=== PATIENT | female | born 1990 | race Caucasian/White ===

== ENCOUNTER 2024-08-06 08:51 | Outpatient (AMB) | payer BC, SELFPAY ==
--- NOTE | 2024-08-06 08:40 | MHC.PC.OV ---
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 Allergies morphine Allergy (Mild, Verified 08/06/24 09:02) stiff Medication List - Last Reconciled 08/06/24 by Coty Gonzalez PA-C No Known Home Meds Tobacco use date assessed: 08/06/24 Dental Screening Dental Screen Date: 08/06/24 Did you have a dental visit in the last 12 months?: Yes Did you have a dental problem in the last 6 months where you did not have access to dental care?: No Was dental information given to patient?: Patient has dentist HPI 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 General: She has tried keto, functional medicine, weight watchers, atkins, [place], calorie deficit, phetnermine, metformin, mounjaro and wegovy. She continues to exercise and eat healthy but unable to lose more weight. Phentermine elevated bp. Metformin caused GI distress. With wegovy she was able to lose 40 lbs and keep it off. She lost 10-15 off of mounjaro. She has been able to keep off 40 lbs. She been off of medications for 6 months or so. She would like to try wegovy again to get down to her goal weight of 175. Her highest weight was 275 lbs. Psych: has anxiety and depression and she states it flares the week before her period. She states she has only every tried ativan but did not tolerate it. She does feel like she would benefit from treatment. Breast: She has noted right breast pain and increased sized. She states it changed 1-2 months ago. She states it feels full. No nipple drainage. No palpable lump. She states it is 1-2 cup sizes bigger than the other side. No fam hx of breast or ovarian ca. No skin changes. 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 [facility] Medical History (Updated 08/06/24 @ 09:44 by Coty Gonzalez PA-C) Severe obesity (BMI 35.0-39.9) with comorbidity Seasonal allergies Polycystic ovarian syndrome Migraine Fatty liver Depression Chronic low back pain Anxiety disorder Abdominal pain, bilateral lower quadrant Surgical History (Updated 08/06/24 @ 08:43 by Kera Cancino CMA) S/P laparoscopy with lysis of adhesions H/O section Family History (Updated 08/06/24 @ 09:05 by Kera Cancino CMA) Mother Anxiety Depression Father Alcoholic Paternal Grandmother Alcoholic Paternal Grandfather Alcoholic Maternal Grandmother Alcoholic Maternal Grandfather Alcoholic Other Substance use Social History Housing: House Patient Tobacco Use Status: Former Tobacco user Cigarettes Per Day: 6 Years Smoked: 7 e-Cigarette/Vaping Use: Currently Using service: No Current occupational status: employed 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 Current occupational exposures/hazards: Yes (ink, heavy machinery, chemicals) Cognitive needs: No Hearing needs: No Vision needs: No Questionnaire Thrive Questionnaire Date Thrive assessed: 07/31/24 I am a: Patient What is your living situation today?: I have a steady place to live Within the past 12 months, did the food you bought not last and you didn't have the money to get more?: Never true Within the past 12 months, did you worry whether your food would run out before you got money to buy more?: Never true Do you have trouble paying for medicines?: Yes Do you have trouble getting transportation to medical appointments?: No Do you have trouble paying your heating and electricity bill?: Yes Do you have trouble taking care of your child, family member or friend?: No Do you have trouble with day-to-day activities such as bathing, preparing meals, shopping, managing finances, etc.?: No Are you currently unemployed and looking for a job?: No Are you interested in more education?: Yes Please select the resources that you would like help with: None Currently or been in a relationship where the following occur: No concerns reported THRIVE Score: 1 AUDIT C Alcohol Use Questionnaire (AUDIT-C) 1. How often do you have a drink containing alcohol?: 2-4 times a month 2. How many drinks containing alcohol do you have on a typical day when you are drinking?: 1 or 2 3. How often do you have six or more drinks on one occasion?: Less than monthly Total Score: 3 OLGA-7 AMB Questionnaire OLGA-7 Feeling nervous, anxious, or on edge: 1 = Several days Not being able to stop or control worryin = Several days Worrying too much about different things: 1 = Several days Trouble relaxin = Several days Being so restless that it is hard to sit still: 1 = Several days Feeling afraid as if something awful might happen: 1 = Several days Source: Developed by Drs. Beau Olea, Jyoti Buchanan, Pedro Garzon and colleagues, with an educational lidia from [employer]. Physical exam (Primary Care) Thrive Assessment: Date of Thrive Assessment Date Thrive assessed 07/31/24 08/06/24 08:45 Currently or been in a relationship where the following occur: No concerns reported Const Orientation/consciousness: patient oriented x3 HENMT Ears: hearing grossly normal bilaterally and TM's normal bilaterally General nose exam: No nasal polyps present Face and sinus: Yes sinuses nontender Mouth: Normal oral and palatal mucosa present Eyes Pupils: Equal, round and reactive pupils present EOM: EOMs intact bilaterally Neck Neck: Yes full ROM and Yes no lymphadenopathy Thyroid: Thyroid normal Chest Chest palpation & inspection: normal inspection of the chest Resp Auscultation: clear to auscultation bilaterally Cardio Rate: regular rate Rhythm: regular rhythm Heart sounds: S1 normal heart sound present and S2 normal heart sound present Peripheral pulses: Peripheral pulses 2+ throughout GI Other: Soft, nontender Auscultation: normal bowel sounds Rectal Exam - Female: deferred General: Yes no CVA tenderness Back/Spine/Pelvis Other: Nontender Back: no CVA tenderness Skin General skin exam: no rashes or lesions noted Neuro General: patient oriented x3, gait normal, CN's II-XI intact bilaterally and deep tendon reflexes 2+ bilaterally Cranial nerves: Yes Equal, round and reactive pupils present Motor exam (neuro): 5/5 motor strength present throughout Sensory Exam: double simultaneous stimulation for sensation normal Coordination: [id number] test normal and Romberg test negative Extrem General: Yes normal to inspection and Yes full ROM Psych Affect: normal affect Attitude: cooperative Thought process: Normal thought process present Thought content: Normal thought content present Insight: Good insight present (Psych) Judgement: Good judgement present (Psych) Coding Level of Care Code Est Pt Level 4 (55005) Complex EM visit Add On G2211 Diagnoses Generalized anxiety disorder F41.1 Fatty liver K76.0 Recurrent major depressive disorder, in partial remission F33.41 Major depression recurrence: recurrent Severe obesity (BMI 35.0-39.9) with comorbidity E66.01 Polycystic ovarian syndrome E28.2 Breast pain, right N64.4 Assessment & Plan Assessment & Plan (1) Generalized anxiety disorder: Code(s): F41.1 - Generalized anxiety disorder Category: Medical Plan: We will start Lexapro. We discussed risks and benefits and adverse effects of this medication. We will follow up in 4-6 weeks. Sooner if needed. (2) Fatty liver: Code(s): K76.0 - Fatty (change of) liver, not elsewhere classified Category: Medical Plan: She states it has been about 5 years since her last ultrasound and she wants to make sure that nothing has changed or worsened. Ultrasound ordered today ordered as well (3) Major depression in partial remission: Code(s): F32.4 - Major depressive disorder, single episode, in partial remission Category: Medical Qualifiers: Major depression recurrence: recurrent Qualified Code(s): F33.41 - Major depressive disorder, recurrent, in partial remission Plan: As above (4) Severe obesity (BMI 35.0-39.9) with comorbidity: Code(s): E66.01 - Morbid (severe) obesity due to excess calories Category: Medical Plan: We will start Wegovy. Discussed risks and benefits and adverse effects of this medication again. Was on this in the past and tolerated well. (5) Polycystic ovarian syndrome: Code(s): E28.2 - Polycystic ovarian syndrome Category: Medical Plan: Advised to follow up with OBGYN. Symptoms of PCOS improve with Wegovy. (6) Breast pain, right: Code(s): N64.4 - Mastodynia Category: Medical Plan: Imaging ordered. Referral to breast and wellness. Advised to contact Gynecology Orders: Orders MM diagnostic mammo unilat RT Today N64.4 - Mastodynia US breast RT complete Today N64.4 - Mastodynia IRON PROFILE Today E28.2 - Polycystic ovarian syndrome, E66.01 - Morbid (severe) obesity due to excess calories, F32.4 - Major depressive disorder, single episode, in partial remission, F41.1 - Generalized anxiety disorder, K76.0 - Fatty (change of) liver, not elsewhere classified, N64.4 - Mastodynia TSH reflex Free T4 Today E28.2 - Polycystic ovarian syndrome, E66.01 - Morbid (severe) obesity due to excess calories, F32.4 - Major depressive disorder, single episode, in partial remission, F41.1 - Generalized anxiety disorder, K76.0 - Fatty (change of) liver, not elsewhere classified, N64.4 - Mastodynia Vitamin B12 and Folate Today E28.2 - Polycystic ovarian syndrome, E66.01 - Morbid (severe) obesity due to excess calories, F32.4 - Major depressive disorder, single episode, in partial remission, F41.1 - Generalized anxiety disorder, K76.0 - Fatty (change of) liver, not elsewhere classified, N64.4 - Mastodynia Complete Blood Count Auto Diff Today E28.2 - Polycystic ovarian syndrome, E66.01 - Morbid (severe) obesity due to excess calories, F32.4 - Major depressive disorder, single episode, in partial remission, F41.1 - Generalized anxiety disorder, K76.0 - Fatty (change of) liver, not elsewhere classified, N64.4 - Mastodynia Comprehensive Met. Panel Today E28.2 - Polycystic ovarian syndrome, E66.01 - Morbid (severe) obesity due to excess calories, F32.4 - Major depressive disorder, single episode, in partial remission, F41.1 - Generalized anxiety disorder, K76.0 - Fatty (change of) liver, not elsewhere classified, N64.4 - Mastodynia Hemoglobin A1c Today E28.2 - Polycystic ovarian syndrome, E66.01 - Morbid (severe) obesity due to excess calories US abdomen complete Today E66.01 - Morbid (severe) obesity due to excess calories, K76.0 - Fatty (change of) liver, not elsewhere classified Referrals Breast Surgery Referral N63.10 - Unspecified lump in the right breast, unspecified quadrant, N64.4 - Mastodynia Medications: New escitalopram oxalate (Lexapro) 5 mg PO DAILY 90 tabs 0RF semaglutide (weight loss) (Wegovy) administer weeks 1 through 4 of therapy 0.25 mg (0.5 mL) subcut QWEEK 2 mL 1RF
[2024-08-06 09:06] VITALS: BP 122/78; PULSE 97; RESP 16; TEMP 37.1; O2SAT 98; BMI 38.2
== END 2024-08-06 09:44 | disposition home or self-care (01) ==
PROVIDERS: Visit Provider Physician Assistant
DX: F41.1 Generalized anxiety disorder (principal); F33.41 Major depressive disorder, recurrent, in partial remission; Z68.38 Body mass index [BMI] 38.0-38.9, adult; E66.812 Obesity, class 2; K76.0 Fatty (change of) liver, not elsewhere classified; E28.2 Polycystic ovarian syndrome; N64.4 Mastodynia

== ENCOUNTER → 2024-08-06 08:51 | Outpatient (BNVA) | payer BC, SELFPAY | PROVIDERS: Visit Provider Physician Assistant ==

== ENCOUNTER 2024-08-06 10:05 | Outpatient (REF) | payer OTHER, SELFPAY ==
[2024-08-06 11:16] LABS: MANUAL DIFF FLAG NO
[2024-08-06 11:27] LABS: Basophils Percent Auto 0.3 % (0-2); Eosinophils Absolute Auto 0.1 X10*3/uL (0.0-0.4); Eosinophils Percent Auto 0.6 % (0-4); Hematocrit 41.5 % (37.0-47.0); Hemoglobin 14.7 g/dl (12.0-16.0); Imm Gran Abs Auto 0.04 X10*3/uL (0.00-0.03); Imm Gran Pct Auto 0.3 % (0.0-0.4); Lymphocytes Absolute Auto 2.3 X10*3/uL (1.2-4.9); Lymphocytes Percent Auto 19.1 % (20-40); Mean Corpuscular HGB Conc 35.4 g/dl (31.0-35.0); Mean Corpuscular Hemoglobin 28.9 pg (27.0-33.0); Mean Corpuscular Volume 81.5 fL (80.0-98.0); Mean Platelet Volume 11.3 fL (9.4-12.3); Monocytes Absolute Auto 0.5 X10*3/uL (0.1-1.2); Neutrophils Absolute Auto 9.1 x10*3/uL (2.0-8.3); Neutrophils Percent Auto 75.7 % (45-73); Platelet Count 273 X10*3/uL (160-400); Red Blood Count 5.09 X10*6/uL (4.20-5.50); Red Cell Distribution Width 12.2 % (11.0-16.0)
[2024-08-06 11:39] LABS: Estimated Average Glucose 91 mg/dL; Hemoglobin A1C 105.1291 umol/L; Hemoglobin A1c % 4.8 % (<6.0); Total Hemoglobin (HGBA1C) 3691.3026 umol/L
[2024-08-06 12:04] LABS: Alanine Aminotransferase 16 U/L (0-31); Albumin Level 4.2 g/dL (3.5-5.0); Alkaline Phosphatase 68 U/L (39-117); Anion Gap 12 (12-20); Aspartate Amino Transferase 16 U/L (5-31); Bilirubin Total 0.5 mg/dL (0.0-1.0); Blood Urea Nitrogen 10 mg/dL (9-16); Calcium 9.3 mg/dL (8.4-10.2); Carbon Dioxide 23 mmol/L (22-29); Chloride 109 mmol/L (96-108); Estimated Glomerular Filt Rate > 60; Glucose Random 88 mg/dL (60-115); Iron 43 mcg/dL (30-160); Percent Iron Saturation 15 % (15-50); Potassium 3.9 mmol/L (3.3-5.1); Sodium 140 mmol/L (135-145); Total Iron Binding Capacity 290 mcg/dL (228-428); Total Protein 7.2 g/dL (6.5-8.0); Unsaturated Iron Binding 247 ug/dL
[2024-08-06 12:13] LABS: TSH reflex Free T4 0.99 uIU/mL (0.32-4.0)
[2024-08-06 12:26] LABS: Folate 8.9 ng/mL (> or = 4.0); Vitamin B12 604 pg/mL (200-900)
== END 2024-08-06 10:06 | disposition home or self-care (01) ==
LOC: HO.WFDLDS 10:05
PROVIDERS: Visit Provider Physician Assistant
DX: F41.1 Generalized anxiety disorder (principal); F33.41 Major depressive disorder, recurrent, in partial remission; K76.0 Fatty (change of) liver, not elsewhere classified; E28.2 Polycystic ovarian syndrome; N64.4 Mastodynia; E66.01 Morbid (severe) obesity due to excess calories; Z68.38 Body mass index [BMI] 38.0-38.9, adult
CPT/HCPCS: 36415; 80053; 82607; 82746; 83036; 83540; 84443; 85025

== ENCOUNTER 2024-09-22 13:53 | Outpatient (REF) | payer OTHER, SELFPAY ==
--- NOTE | ~2024-09-22 | MM_ITS ---
EXAMINATION: MM DIAGNOSTIC DIGITAL BREAST TOMOSYNTHESIS, BILATERAL US BREAST LIMITED, RIGHT MAMMOGRAPHY: CLINICAL INFORMATION: 34-year-old female, right breast has grown over one cup size in the [id number], along with associated outer lower to inner lower pain traveling to nipple. No significant family history of breast CA. COMPARISON: Mammography: None. Baseline exam. TECHNIQUE: Digital breast tomosynthesis is performed in both the craniocaudal and mediolateral oblique views along with computer-aided detection (CAD). Synthesized 2D images are generated from the tomosynthesis. In addition, a 3-D added full field left CC view was obtained. FINDINGS: There are scattered areas of fibroglandular density (ACR BI-RADS breast composition Category b). Right breast is slightly larger than the left. There are no suspicious asymmetries, masses, suspicious grouped calcifications, or areas of architectural distortion in either breast. There is no skin or axillary abnormality. ULTRASOUND: CLINICAL INFORMATION: As above. COMPARISON: None TECHNIQUE: Targeted sonographic evaluation was performed using a high frequency linear transducer. Right breast was examined from the 7:00 to 2:00 positions. Selected archived documentation. FINDINGS: RIGHT BREAST: There is a mixture of fatty and fibroglandular tissue. No suspicious mass is seen. There is no pathologic acoustic shadowing. There is no cystic abnormality present. MM/MM tomosynthesis diagnostic BI IMPRESSION: -There are no findings suspicious for malignancy in either breast. -There is no imaging correlate to the patient's complaints of pain in the right breast. Right breast is slightly larger than the left. No suspicious finding. Recommend clinical management and follow-up. OVERALL ASSESSMENT: Mammography: BI-RADS 2 - Benign Findings Ultrasound: BI-RADS 2 - Benign Findings RECOMMENDATION: 1. Patient should be managed based on the clinical impression. 2. Otherwise, routine annual screening mammography age 40 or sooner if indicated. This patient's information was entered into a reminder system with a target due date for their next mammogram. Electronically signed by: Phillip Mcgregor MD 09/22/2024 02:51 PM [facility] [place]
== END 2024-09-22 13:54 | disposition home or self-care (01) ==
LOC: HO.MAMMO 13:53
PROVIDERS: PCP Physician Assistant; Visit Provider Physician Assistant
DX: N64.4 Mastodynia (principal); R92.321 Mammographic fibroglandular density, right breast
CPT/HCPCS: 76642; 77062; 77066

== ENCOUNTER → 2024-09-22 14:30 | Outpatient (BNV) | payer OTHER, SELFPAY | PROVIDERS: PCP Physician Assistant; Visit Provider Radiology Diagnostic Radiology | DX: N64.4 Mastodynia (principal); R92.311 Mammographic fatty tissue density, right breast; R92.321 Mammographic fibroglandular density, right breast | CPT/HCPCS: 76642; 77062; 77066 ==

== ENCOUNTER 2024-09-23 15:13 | Outpatient (AMB) | payer OTHER, SELFPAY ==
--- NOTE | 2024-09-23 15:37 | A.OFFPC_ITS ---
Vital Signs 09/23/24 15:38 Height 5 ft 5 in Weight 232 lb 8 oz BMI 38.7 BP 118/82 Blood Pressure Location Rt brachial Position Sitting Pulse 77 Pulse Source Pulse Oximeter Pulse Oximetry (%) 96 Oxygen Delivery Method Room Air Intake Visit Reasons: med check Intake Note: Follow up. Allergies morphine Allergy (Mild, Verified 09/23/24 15:38) stiff Medication List - Last Reconciled 09/23/24 by Coty Gonzalez PA-C escitalopram oxalate (Lexapro) 5 mg PO DAILY Tobacco use date assessed: 08/06/24 Dental Screening Dental Screen Date: 08/06/24 HPI med check HPI Details History of Present Illness The patient is a 34-year-old female presenting with concerns of breast asymmetry and follow-up on mental health and weight management. She reports that her right breast has recently become larger than the left, which is unusual as there is no family history of breast cancer, and she is not nor has she recently had a baby. A mammogram and ultrasound conducted recently showed no suspicious findings for malignancy or imaging that correlates with the patient's complaints of right breast pain. The patient has been experiencing mild depression and anxiety, which have been managed with a low dose of Lexapro (5 mg). The current management has helped a lleviate symptoms such as depression, anxiety, and reduced sex drive, but she expresses interest in increasing the dosage for better management. In addition, she has been managing obesity and was started on Wegovy, with the goal of increasing the dosage gradually to achieve maximum weight loss benefit. The patient reports a long-standing leukocytosis observed since the of her son, with fluctuations in white blood cell count but no recent associated symptoms. Social History - Quit smoking; currently tapering off u sing vaping, aiming to stop by the year?s end. - Engages in regular exercise. - Reports difficulty with hydration whil e on Wegovy. Review of Systems - Constitutional: Denies fatigue, fever. - Psychological: Reports improved mood a nd anxiety with current medication. - Genitourinary: Denies dysuria. Physical Exam General: Cooperative, healthy appearing, comfortable, no acute distress and well developed Orientation: Patient oriented x3 Limitations: No limitations Head: Normal to inspection Ears: Hearing grossly normal bilaterally Nose: Normal external nose present Face and sinus: Normal facial exam Eyes: Appearance normal, both eyes and all related structures Neck: Normal visual inspection and Yes full ROM Respiratory: Normal respiratory effort and able to speak in complete sentences. Clear to auscultation bilaterally Cardiovascular: Regular rate and rhythm. Normal S1 and S2 GI: Normal to inspection. Soft to palpation and nontender Skin: No rashes or lesions noted Neuro: Patient oriented x3 Extremities: Normal to inspection, no swelling noted Results - Recent mammogram and ultrasound: No monroy spicious findings for malignancy, right breast slightly larger than left, no imaging correlates with pain. - Labs: Slightly elevated white blood ce ll count. Patient was informed and verbally consented to the use of an ambient scribe for clinic note documentation during this visit. Discussion Notes I discussed the recent mammogram and ultrasound findings with the patient, noting that no malignancy was detected and no imaging corresponds to the pain reported in the right breast. I recommended follow-up with a breast surgeon for further evaluation due to the asymmetry concern. We discussed the current management of her mild depression and anxiety with Lexapro and agreed to increase the dosage to 10 mg to achieve better control of symptoms. The patient has been experiencing improved mood, anxiety reduction, and increased libido with the current dose. For weight management, we are increasing the dosage of Wegovy incrementally to maximize the therapeutic benefit, with monitoring of her complete blood count and other labs to ensure overall health stability is maintained. Patient Instructions - Schedule an appointment with a breast surgeon for further evaluation of breast asymmetry. - Start taking 10 mg of Lexapro as presc ribed to manage mood and anxiety symptoms more effectively. - Gradually increase Wegovy dosage as in structed for weight management. - Cease vaping by the end of the year an d repeat blood count monitoring thereafter. - Maintain hydration, with consideration for options such as coconut water to ensure proper electrolyte balance. - Return for a three-month follow-up to assess the effectiveness of the treatment plan and reassess labs. [facility] Medical History (Updated 09/23/24 @ 15:38 by Kera Cancino CMA) History of mammogram Severe obesity (BMI 35.0-39.9) with comorbidity Seasonal allergies Polycystic ovarian syndrome Migraine Fatty liver Depression Chronic low back pain Anxiety disorder Abdominal pain, bilateral lower quadrant Surgical History S/P laparoscopy with lysis of adhesions H/O section Family History Mother Anxiety Depression Father Alcoholic Paternal Grandmother Alcoholic Paternal Grandfather Alcoholic Maternal Grandmother Alcoholic Maternal Grandfather Alcoholic Other Substance use Social History (Updated 09/23/24 @ 15:42 by Kera Cancino CMA) Housing: House Alcohol intake: former Patient Tobacco Use Status: Former Tobacco user Cigarettes Per Day: 6 Years Smoked: 7 e-Cigarette/Vaping Use: Currently Using service: No Current occupational status: employed 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 Current occupational exposures/hazards: Yes (ink, heavy machinery, chemicals) Cognitive needs: No Hearing needs: No Vision needs: No Questionnaire Thrive Questionnaire Date Thrive assessed: 07/31/24 I am a: Patient What is your living situation today?: I have a steady place to live Within the past 12 months, did the food you bought not last and you didn't have the money to get more?: Never true Within the past 12 months, did you worry whether your food would run out before you got money to buy more?: Never true Do you have trouble paying for medicines?: Yes Do you have trouble getting transportation to medical appointments?: No Do you have trouble paying your heating and electricity bill?: Yes Do you have trouble taking care of your child, family member or friend?: No Do you have trouble with day-to-day activities such as bathing, preparing meals, shopping, managing finances, etc.?: No Are you currently unemployed and looking for a job?: No Are you interested in more education?: Yes Please select the resources that you would like help with: None Currently or been in a relationship where the following occur: No concerns reported THRIVE Score: 1 OLGA-7 AMB Questionnaire OLGA-7 Becoming easily annoyed or irritable: 0 = Not at all Source: Developed by Drs. Beau Olea, Jyoti Buchanan, Pedro Garzon and colleagues, with an educational lidia from [employer]. Physical exam (Primary Care) Vital Signs: Last Vital Signs Pulse 77 09/23/24 15:38 BP 118/82 09/23/24 15:38 Pulse Ox 96 09/23/24 15:38 Oxygen Delivery Method Room Air 09/23/24 15:38 BMI result Body Mass Index 38.7 Tobacco/Smoking Status: Tobacco use Status Tobacco use date assessed 08/06/24 09/23/24 15:42 Patient Tobacco Use Status Former Tobacco user 09/23/24 15:42 e-Cigarette/Vaping Use Currently Using 09/23/24 15:42 Thrive Assessment: Date of Thrive Assessment Date Thrive assessed 07/31/24 09/23/24 15:42 Currently or been in a relationship where the following occur: No concerns reported Coding Level of Care Code Est Pt Level 4 (39704) Complex EM visit Add On G2211 Diagnoses Severe obesity (BMI 35.0-39.9) with comorbidity E66.01 Generalized anxiety disorder F41.1 Recurrent major depressive disorder, in partial remission F33.41 Major depression recurrence: recurrent Leukocytosis D72.829 Assessment & Plan Assessment & Plan (1) Severe obesity (BMI 35.0-39.9) with comorbidity: Code(s): E66.01 - Morbid (severe) obesity due to excess calories Category: Medical Plan: Increase Wegovy. Tolerating well. Continue with healthy lifestyle modifications (2) Generalized anxiety disorder: Code(s): F41.1 - Generalized anxiety disorder Category: Medical Plan: Increase Lexapro to 10 mg. Follow up in 3 months. Sooner if needed. (3) Major depression in partial remission: Code(s): F32.4 - Major depressive disorder, single episode, in partial remission Category: Medical Qualifiers: Major depression recurrence: recurrent Qualified Code(s): F33.41 - Major depressive disorder, recurrent, in partial remission Plan: As above (4) Leukocytosis: Code(s): D72.829 - Elevated white blood cell count, unspecified Category: Medical Plan: We will recheck in 3 months. Encouraged her to stop vaping. Encouraged hydration. Patient understands and agrees with this plan. Orders: Orders Comprehensive Met. Panel Today D72.829 - Elevated white blood cell count, unspecified, E66.01 - Morbid (severe) obesity due to excess calories, F33.41 - Major depressive disorder, recurrent, in partial remission, F41.1 - Generalized anxiety disorder Medications: New semaglutide (weight loss) (Wegovy) 0.5 mg (0.5 mL) subcut QWEEK 2 mL 2RF escitalopram oxalate (Lexapro) 10 mg PO DAILY 90 tabs 1RF Discontinued escitalopram oxalate (Lexapro) Discontinued Reason: Doctor's Order 5 mg PO DAILY 90 tabs 0RF
[2024-09-23 15:38] VITALS: BP 118/82; PULSE 77; O2SAT 96; BMI 38.7
== END 2024-09-23 16:04 | disposition home or self-care (01) ==
PROVIDERS: Visit Provider Physician Assistant
DX: D72.829 Elevated white blood cell count, unspecified (principal); E66.01 Morbid (severe) obesity due to excess calories; F33.41 Major depressive disorder, recurrent, in partial remission; Z68.38 Body mass index [BMI] 38.0-38.9, adult; F41.1 Generalized anxiety disorder

== ENCOUNTER → 2024-09-23 15:13 | Outpatient (BNVA) | payer OTHER, SELFPAY | PROVIDERS: Visit Provider Physician Assistant ==

== ENCOUNTER 2024-12-30 14:16 | Outpatient (AMB) | payer OTHER, SELFPAY ==
--- NOTE | 2024-12-30 14:18 | A.OFFPC_ITS ---
Vital Signs 12/30/24 14:19 Height 5 ft 4 in Weight 232 lb 8 oz BMI 39.9 BP 106/70 Blood Pressure Location Rt brachial Position Sitting Intake Visit Reasons: med f/u Allergies morphine Allergy (Mild, Verified 09/23/24 15:38) stiff Medication List - Last Reconciled 12/30/24 by Coty Gonzalez PA-C Tobacco use date assessed: 08/06/24 Dental Screening Dental Screen Date: 08/06/24 HPI med f/u HPI Details History of Present Illness The patient is a 34-year-old female presenting with concerns regarding weight management and breast asymmetry. She has been on semaglutide (Wegovy), currently at 1 mg, for the past three months, with plans to increase to 1.7 mg, as weight loss has plateaued. Despite dietary changes and exercise, the scale has not shown significant changes, although she notes fitting better in clothes potentially indicating changes in body composition. The patient experiences asymmetry in breast size, which she associates with weight changes. Imaging has been done, with a secondary imaging showing no conclusive diagnosis. The breast asymmetry may be perceived due to significant weight loss over the past few years. Pain associated with this condition is present, though the cause remains undetermined. She has been prescribed vitamin D by another healthcare provider, with no other interventions recommended so far. The patient previously stopped Lexapro due to side effects, including decreased sexual function, approximately a month ago, and reports improved mental well- being and return of sexual function. The patient also discussed lifestyle adjustments such as reducing social media use, which improved mood. Concerning nicotine use, the patient has reduced to zero nicotine as part of her ongoing process to quit vaping. Health Maintenance - Discussions about optimizing dietary p rotein intake to facilitate weight loss while maintaining muscle mass. - Recommendations on modifying exercise schedule and intensity for improved metabolic benefits. - Education provided about the potential benefits and use of a body composition scale (Renpho) for better tracking of fat and muscle changes. - Guidance on modifying carbohydrate int reba at dinner to facilitate weight loss goals. - Encouraged reduction or cessation of s ocial media to enhance mental well- being. Social History - Engaged in regular physical activity, incorporating treadmill and potential weight lifting. - Experiences difficulties balancing wor kouts with family responsibilities, suggesting a busy lifestyle. - Reported reduced social media use, opt ing for reading to manage mental health. - Attempting to quit vaping, currently u tilizing zero nicotine. Review of Systems - General: Reports feeling physically re sistant to weight loss despite dietary and lifestyle efforts. - Neurological: Denies mood disturbances currently; positive history of situational improvements. - Endocrine: Denies current symptoms of hyperthyroidism; negative neck swelling. - Musculoskeletal: Denies significant ex ercise-induced injuries; reports new exercise regimen including lower body. Physical Exam General: Well developed, well nourished, in no acute distress. Appears stated age. Cardiac: RRR, no murmurs Lungs: clear, equal breath sounds Abdomen: soft, nontender, no CVA tenderness Extremities: no edema Neuro: alert, oriented x3, mood appropriate Plan 1. 7 mg: - Continue interventions focuse d on dietary protein intake, reduction of evening carbohydrates, and adjusting exercise routines. - For breast asymmetry, continue follow- up with specialist and periodic assessments; currently correlating presentation with weight changes. - Reinforce cessation of Lexapro due to resolved sexual dysfunction; continue monitoring mental health via lifestyle changes. - Encourage continued progress toward co mplete nicotine cessation, documenting reduced nicotine content in vaping products. [facility] Medical History (Updated 09/23/24 @ 15:38 by Kera Cancino CMA) History of mammogram Severe obesity (BMI 35.0-39.9) with comorbidity Seasonal allergies Polycystic ovarian syndrome Migraine Fatty liver Depression Chronic low back pain Anxiety disorder Abdominal pain, bilateral lower quadrant Surgical History S/P laparoscopy with lysis of adhesions H/O section Family History Mother Anxiety Depression Father Alcoholic Paternal Grandmother Alcoholic Paternal Grandfather Alcoholic Maternal Grandmother Alcoholic Maternal Grandfather Alcoholic Other Substance use Social History (Updated 09/23/24 @ 15:42 by Kera Cancino CMA) Housing: House Alcohol intake: former Patient Tobacco Use Status: Former Tobacco user Cigarettes Per Day: 6 Years Smoked: 7 e-Cigarette/Vaping Use: Currently Using service: No Current occupational status: employed 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 1. Little interest or pleasure in doing things: not at all 2. Feeling down, depressed, or hopeless: not at all 3. Trouble falling or staying asleep, or sleeping too much: not at all 4. Feeling tired or having little energy: several days 5. Poor appetite or overeating: several days 6. Feeling bad about yourself - or that you are a failure or have let yourself or your family down: not at all 7. Trouble concentrating on things, such as reading the newspaper or watching television: several days 8. Moving or speaking so slowly that other people could have noticed. Or the opposite - being so fidgety or restless that you have been moving around a lot more than usual: not at all 9. Thoughts that you would be better off or of hurting yourself in some way: not at all Total score: 3 Source: Developed by Drs. Beau Olea, Jyoti Buchanan, Pedro Garzon and colleagues, with an educational lidia from [employer]. Thrive Questionnaire Date Thrive assessed: 07/31/24 I am a: Patient What is your living situation today?: I have a steady place to live Within the past 12 months, did the food you bought not last and you didn't have the money to get more?: Never true Within the past 12 months, did you worry whether your food would run out before you got money to buy more?: Never true Do you have trouble paying for medicines?: No Do you have trouble getting transportation to medical appointments?: No Do you have trouble paying your heating and electricity bill?: No Do you have trouble taking care of your child, family member or friend?: No Do you have trouble with day-to-day activities such as bathing, preparing meals, shopping, managing finances, etc.?: No Are you currently unemployed and looking for a job?: No Are you interested in more education?: No Please select the resources that you would like help with: None Currently or been in a relationship where the following occur: No concerns reported THRIVE Score: 0 AUDIT C Alcohol Use Questionnaire (AUDIT-C) 1. How often do you have a drink containing alcohol?: Monthly or less 2. How many drinks containing alcohol do you have on a typical day when you are drinking?: 1 or 2 3. How often do you have six or more drinks on one occasion?: Never Total Score: 1 OLGA-7 AMB Questionnaire OLGA-7 Feeling nervous, anxious, or on edge: 1 = Several days Not being able to stop or control worryin = Several days Worrying too much about different things: 1 = Several days Trouble relaxin = Several days Being so restless that it is hard to sit still: 0 = Not at all Becoming easily annoyed or irritable: 1 = Several days Feeling afraid as if something awful might happen: 0 = Not at all Total OLGA-7 score (0-4 normal; 5-9 mild; 10-14 moderate; 15-21 severe): 5 Source: Developed by Drs. Beau Olea, Jyoti Buchanan, Pedro Garzon and colleagues, with an educational lidia from [employer]. Physical exam (Primary Care) Vital Signs: Last Vital Signs BP 106/70 12/30/24 14:19 BMI result Body Mass Index 39.9 Tobacco/Smoking Status: Tobacco use Status Tobacco use date assessed 08/06/24 12/30/24 14:18 Patient Tobacco Use Status Former Tobacco user 12/30/24 14:18 e-Cigarette/Vaping Use Currently Using 12/30/24 14:18 PHQ-9: PHQ-9 Score PHQ-9: Total score 3 12/30/24 14:18 Thrive Assessment: Date of Thrive Assessment Date Thrive assessed 07/31/24 12/30/24 14:18 Currently or been in a relationship where the following occur: No concerns reported Coding Level of Care Code Est Pt Level 4 (93487) Complex EM visit Add On G2211 Diagnoses Recurrent major depressive disorder, in partial remission F33.41 Major depression recurrence: recurrent Breast pain, right N64.4 Severe obesity (BMI 35.0-39.9) with comorbidity E66.01 Assessment & Plan Assessment & Plan (1) Major depression in partial remission: Code(s): F32.4 - Major depressive disorder, single episode, in partial remission Category: Medical Qualifiers: Major depression recurrence: recurrent Qualified Code(s): F33.41 - Major depressive disorder, recurrent, in partial remission Plan: d/c lexapro as feeling better. (2) Breast pain, right: Code(s): N64.4 - Mastodynia Category: Medical Plan: following with breast center (3) Severe obesity (BMI 35.0-39.9) with comorbidity: Code(s): E66.01 - Morbid (severe) obesity due to excess calories Category: Medical Plan: increase wegovy to 1.7 mg Medications: New semaglutide (weight loss) (Wegovy) administer weeks 13 through 16 of therapy 1.7 mg (0.75 mL) subcut QWEEK 3 mL 3RF
[2024-12-30 14:19] VITALS: BP 106/70; BMI 39.9
--- OUTSIDE RECORDS SUMMARY | 2024-12-30 17:41 | XMS_ITS | Continuity of Care Document ---
Author Organization [facility] [place] 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, [address] [place] [address]- Attending Physician: Nataly Finley NP Admitting Physician: Nataly Finley NP Referring Physician: Nataly Finley NP Encounter Type: OutPatient One Time Allergies, Adverse Reactions, Alerts Substance Criticality Severity Reaction Reaction Severity Status morphine Active Immunizations Given and Recorded Vaccine Date Status Refusal Reason influenza virus vaccine, inactivated 09/11/21 Bradley rded influenza virus vaccine, inactivated 08/14/19 Bradley rded influenza virus vaccine, inactivated 08/27/18 Bradley rded influenza virus vaccine, inactivated 08/29/17 Bradley rded SARS-CoV-2 (COVID-19) mRNA BNT-162b2 vac 02/15/21 Recorded SARS-CoV-2 (COVID-19) mRNA BNT-162b2 vac 01/25/21 Recorded Influenza Virus Vaccine (oldterm) 08/04/20 Recorde d tetanus/diphtheria/pertussis, acel(Tdap) 11/04/19 Recorded Medications acetaminophen 325 mg oral tablet 650 mg, By Mouth, Every 4 hours, . not to exceed 4000 mg/day, # 60 tablet, Refills 0, Tot. Refills 0, Maintenance, 09/05/20 6:27:00 AM EST, Route to Pharmacy Electronically, [facility]/pharmacy #[id number], 165, cm, 09/05/20 4:11:00 EST, Height, 107.5, kg, 09/02/20 14:24:00 EDT, Dry Weight Start Date: 09/05/20 Status: Ordered Quantity: 60.0 Unit: tablet Repeat number: 1 Lexapro 10 mg oral tablet 1 tablet = 10 mg, By Mouth, Daily, # 30 tablet, 0 Refills, Maintenance, 11/17/24 2:47:00 PM EST, Tablet, Partial fill upon patient request if the prescription is for a schedule II opioid drug. Start Date: 11/17/24 Status: Ordered Quantity: 30.0 Unit: tablet Repeat number: 1 Wegovy (0.5 mg dose) subcutaneous solution = 0.5 mg, Subcutaneous Injection, Every week, in the abdomen, thigh, or upper arm, # 2 mL, 0 Refills, Maintenance, 11/17/24 2:55:00 PM EST, Solution, Partial fill upon patient request if the prescription is for a schedule II opioid drug. Start Date: 11/17/24 Stop Date: 12/15/24 Status: Ordered Quantity: 2.0 Unit: mL Repeat number: 1 Problem List Condition Confirmation Course Effective Dates Status Health St atus Informant H/o KAREN positive Confirmed Active Anxiety disorder Confirmed Active Chronic low back pain Confirmed Active Depression Confirmed Active GI Disorder Confirmed Active Abdominal pain, bilateral lower quadrant Confirmed Active Migraine Confirmed Active Polycystic ovarian syndrome Confirmed Active Seasonal allergies Confirmed Active Severe obesity (BMI 35.0-39.9) with comorbidity Confirmed Active Fatty liver Confirmed Active Results Radiology Reports * Exam Date Time Procedure Performing Provider Status 11/27/24 3:46 PM US Breast Right Limited Lillian Queen na; Auth (Verified) Notes: (US Breast Right Limited) Reason For Exam: breast pain/enlargement ? lumps;Palpable Mass RESULT: US Breast Right Limited PROCEDURE: US Breast Right Limited INDICATION: Right breast pain/enlargement and palpable lumps in the 8:00 axis 3 cm and 11 cm from the nipple reported on clinical exam. COMPARISON: Correlation made to outside mammogram of 09/22/2024 TECHNIQUE: Targeted high-resolution ultrasound of the right breast was performed centered in the 8-9 o'clock axis which encompasses the areas of palpable concern indicated by the patient and referring clinician FINDINGS: No cystic or solid sonographic abnormality is seen within the imaged portion of the rightbreast. IMPRESSION: No cystic or solid sonographic abnormality in the imaged portion of the right breast inthe areas of palpable concern. Further management should be based upon clinical criteria. Lack of an imaging correlate should not deter or delay biopsy of a clinically suspicious palpable finding. RECOMMENDATION: Clinical follow-up and management BI-RADS: 1 (Negative) Lay letter not required (ultrasound only) WSN: [id number] Ordering Physician: Nataly Finley Dictated By: hCris Cotton Jr, MD Dictated Date/Time: 11/27/24 3:55 pm Reviewed By: Chris Cotton Jr, MD Signed By: Chris Cotton Jr, MD Signed Date/Time: 11/27/24 3:55 pm Transcribed By: SOUMYA Transcribed Date/Time: 11/27/24 3:49 pm Social History Social History Type Response Smoking Status Former smoker, quit more than 30 days ago; Other: quit 12/2022, 1/4 pack a day; Started at age: 20; entered on: 09/20/23 Sex Sex Representation Female (finding) Patient Care team information Care Team Personnel Name: Coty Cortes Position: Reference Physician Member Role: PCP [address]: [address] [place] [address] Telecom: Name: Therese Jacobo Position: S Onco RN Member Role: Primary Care Nurse Care Team Related Persons Name: MOE MATHEWS Name: DREA HERNANDEZ Name: SHRUTI WHITFIELD Name: MOE WHITFIELD Insurance Providers Guarantor name: KATRINA WHITFIELD Health Plan Information #: 1 Payer: [employer] PPO Member Number: [id number] Policy Number: NA Group Number: [id number] Health Plan Information #: 2 Payer: [employer] PPO Member Number: [id number] Policy Number: NA Group Number: [id number]
== END 2024-12-30 14:38 | disposition home or self-care (01) ==
PROVIDERS: PCP Physician Assistant; Visit Provider Physician Assistant
DX: N64.4 Mastodynia (principal); F33.41 Major depressive disorder, recurrent, in partial remission; E66.01 Morbid (severe) obesity due to excess calories; Z68.39 Body mass index [BMI] 39.0-39.9, adult

== ENCOUNTER 2025-07-01 15:10 | Outpatient (AMB) | payer OTHER, SELFPAY ==
--- NOTE | 2025-07-01 15:12 | A.OFFPC_ITS ---
Vital Signs 07/01/25 15:16 Height 5 ft 4 in Weight 234 lb 2 oz BMI 40.2 BP 132/63 Blood Pressure Location Lt brachial Position Sitting Respiration 16 Pulse 83 Pulse Source Pulse Oximeter Temp 97.9 F Temp Source Oral Pulse Oximetry (%) 99 Oxygen Delivery Method Room Air Intake Visit Reasons: meds Intake Note: patient here for follow up on meds Dismantler Required: No Is last menstrual period known: Yes (had a hysterectomy 6 wks ago) Post menopausal: No Patient : No Allergies morphine Allergy (Mild, Verified 07/01/25 15:15) stiff Medication List - Last Reconciled 07/01/25 by Coty Gonzalez PA-C estradiol (Lyllana) 1 patch transdermal 2XW Tobacco use date assessed: 07/01/25 Dental Screening Dental Screen Date: 07/01/25 Did you have a dental visit in the last 12 months?: No Did you have a dental problem in the last 6 months where you did not have access to dental care?: No Was dental information given to patient?: Patient has dentist HPI meds HPI Details Patient Is a 34-year-old female who presents today for a follow up. Psych: She tells me that since her total hysterectomy and being on estradiol she feels like some of her brain fog and concentration has gotten better but she does wonder if she could have ADD or autism. She states that she has a hard time concentrating at times and we will often find things to fixate on or binge on like food. General: Previously on Wegovy for obesity and was doing well but insurance no longer covers it. She states she is going to try just diet and exercise. Cementer: s/p total hysterectomy 6 weeks ago. She just started the estradiol patch. She states that the hysterectomy happened because she had significant fibroids that were causing a lot of bleeding. They decided to do a total hysterectomy because she was experiencing frequent ruptured ovarian cysts. [facility] Medical History (Updated 07/01/25 @ 15:39 by Coty Gonzalez PA-C) History of mammogram Severe obesity (BMI 35.0-39.9) with comorbidity Seasonal allergies Polycystic ovarian syndrome Migraine Fatty liver Depression Chronic low back pain Anxiety disorder Abdominal pain, bilateral lower quadrant Surgical History S/P laparoscopy with lysis of adhesions H/O section Family History Mother Anxiety Depression Father Alcoholic Paternal Grandmother Alcoholic Paternal Grandfather Alcoholic Maternal Grandmother Alcoholic Maternal Grandfather Alcoholic Other Substance use Social History (Updated 09/23/24 @ 15:42 by Kera Cancino CMA) Housing: House Alcohol intake: former Patient Tobacco Use Status: Former Tobacco user Cigarettes Per Day: 6 Years Smoked: 7 e-Cigarette/Vaping Use: Currently Using service: No Current occupational status: employed 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 Current occupational exposures/hazards: Yes (ink, heavy machinery, chemicals) Cognitive needs: No Hearing needs: No Vision needs: No Questionnaire Thrive Questionnaire Date Thrive assessed: 12/30/24 I am a: Patient What is your living situation today?: I have a steady place to live Within the past 12 months, did the food you bought not last and you didn't have the money to get more?: Never true Within the past 12 months, did you worry whether your food would run out before you got money to buy more?: Never true Do you have trouble paying for medicines?: No Do you have trouble getting transportation to medical appointments?: No Do you have trouble paying your heating and electricity bill?: No Do you have trouble taking care of your child, family member or friend?: No Do you have trouble with day-to-day activities such as bathing, preparing meals, shopping, managing finances, etc.?: No Are you currently unemployed and looking for a job?: No Are you interested in more education?: No Please select the resources that you would like help with: None Currently or been in a relationship where the following occur: No concerns reported THRIVE Score: 0 Physical exam (Primary Care) Vital Signs: Last Vital Signs Temp 97.9 F 07/01/25 15:16 Pulse 83 07/01/25 15:16 Resp 16 07/01/25 15:16 BP 132/63 07/01/25 15:16 Pulse Ox 99 07/01/25 15:16 Oxygen Delivery Method Room Air 07/01/25 15:16 BMI result Body Mass Index 40.2 Tobacco/Smoking Status: Tobacco use Status Tobacco use date assessed 07/01/25 07/01/25 15:21 Patient Tobacco Use Status Former Tobacco user 07/01/25 15:12 e-Cigarette/Vaping Use Currently Using 07/01/25 15:12 Thrive Assessment: Date of Thrive Assessment Date Thrive assessed 12/30/24 07/01/25 15:12 Currently or been in a relationship where the following occur: No concerns reported Const Orientation/consciousness: patient oriented x3 HENMT Ears: hearing grossly normal bilaterally Neck Thyroid: Thyroid normal Lymphatic: no lymphadenopathy noted Resp Auscultation: clear to auscultation bilaterally Cardio Rate: regular rate Rhythm: regular rhythm Heart sounds: S1 normal heart sound present and S2 normal heart sound present GI Inspection: Yes normal to inspection Palpation (GI): Soft to palpation and Other GI palpation findings present (nontender, no cva tenderness) Auscultation: normoactive bowel sounds Rectal Exam - Female: deferred Skin General skin exam: no rashes or lesions noted Neuro General: patient oriented x3, gait normal and no focal motor deficits Coding Level of Care Code Est Pt Level 4 (16750) Complex EM visit Add On G2211 Diagnoses Severe obesity (BMI 35.0-39.9) with comorbidity E66.01 Insulin resistance E88.819 Difficulty concentrating R41.840 Assessment & Plan Assessment & Plan (1) Severe obesity (BMI 35.0-39.9) with comorbidity: Code(s): E66.01 - Morbid (severe) obesity due to excess calories Category: Medical Plan: Working on diet and exercise. Insurance no longer covering GLP ones (2) Insulin resistance: Code(s): E88.819 - Insulin resistance, unspecified Category: Medical Plan: a1c ordered (3) Difficulty concentrating: Code(s): R41.840 - Attention and concentration deficit Category: Medical Plan: referral to neuropsych Plan Labs ordered today. We will follow up for a physical exam. Patient will follow up sooner if needed. Patient understands and agrees with the plan. Orders: Orders Complete Blood Count Auto Diff Today E66.01 - Morbid (severe) obesity due to excess calories, E88.819 - Insulin resistance, unspecified Comprehensive [place]. Panel Fast Today E66.01 - Morbid (severe) obesity due to excess calories, E88.819 - Insulin resistance, unspecified TSH reflex Free T4 Today E66.01 - Morbid (severe) obesity due to excess calories, E88.819 - Insulin resistance, unspecified Hemoglobin A1c Today E66.01 - Morbid (severe) obesity due to excess calories, E88.819 - Insulin resistance, unspecified, R73.01 - Impaired fasting glucose Lipid Panel Today E66.01 - Morbid (severe) obesity due to excess calories, E88.819 - Insulin resistance, unspecified Referrals Neuropsychiatry Referral R41.840 - Attention and concentration deficit
[2025-07-01 15:16] VITALS: BP 132/63; PULSE 83; RESP 16; TEMP 36.6; O2SAT 99; BMI 40.2
== END 2025-07-01 15:42 | disposition home or self-care (01) ==
LOC: HO.HMCFM 15:11
PROVIDERS: PCP Physician Assistant; Visit Provider Physician Assistant
DX: R41.840 Attention and concentration deficit (principal); E88.819 Insulin resistance, unspecified; E66.01 Morbid (severe) obesity due to excess calories; Z68.41 Body mass index [BMI] 40.0-44.9, adult

== ENCOUNTER 2025-10-13 13:41 | Outpatient (AMB) | payer OTHER, SELFPAY ==
--- NOTE | 2025-10-13 13:51 | A.OFFPC_ITS ---
Vital Signs 10/13/25 13:52 Height 5 ft 4 in Weight 231 lb 6 oz BMI 39.7 BP 126/84 Blood Pressure Location Lt brachial Position Sitting Respiration 14 Pulse 98 Pulse Source Pulse Oximeter Temp 98 F Temp Source Oral Pulse Oximetry (%) 98 Oxygen Delivery Method Room Air Intake Visit Reasons: abdominal pain post hysterectomy Intake Note: Abdominal pain around incision from hysterectomy. Allergies morphine Allergy (Mild, Verified 10/13/25 13:51) stiff Medication List - Last Reconciled 10/13/25 by Coty Gonzalez PA-C estradiol (Lyllana) 1 patch transdermal 2XW Tobacco use date assessed: 10/13/25 Dental Screening Dental Screen Date: 07/01/25 HPI abdominal pain post hysterectomy HPI Details Patient Is a 34-year-old female who presents today for a follow up. GI: She has been having significant worsening abdominal pain since her total hysterectomy in May 2025. She states she woke up from surgery with point specific, left sided abdominal pain just inferior umbilicus. That pain is still present and tender to touch. She states that she also has pain from the belly button down to the incision. It is worse with running, palpation, bowel movements. She states sometimes the pain will wrap to the sides of the abdomen/hips. She states she gets sharp pain, cramping pains, dull aches, and constant tenderness. She saw her parquetry floor layer who did the surgery and he did an abdominal and pelvic ultrasound that was unrevealing. No vomiting. She does get nausea with the period like cramps. She does get frequent soft stools since surgery. No blood in the stool. No fam hx of colorectal ca. She does have a hx of adhesions. Dr. Mendez told her to come here to be evaluated for ongoing pain. hx of adhesions 2013 had exploratory surgery 2019 she had a c section and in 2020 was noted to have adhesions from uterus to c section scar [address] mendez to have adhesi ons from uterus to bladder. General: Previously on Wegovy for obesity and was doing well but insurance no longer covers it. She states she is going to try just diet and exercise. 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 She was started the estradiol patch. She states that the hysterectomy happened because she had significant fibroids that were causing a lot of bleeding. They decided to do a total hysterectomy because she was experiencing frequent ruptured ovarian cysts. She states since surgery she has been having issues. She has seen her [facility] ACCOMMODATION CONSULTANT 3x and states that they told her to come here to be seen and for further work up. [facility] Medical History (Updated 10/13/25 @ 14:15 by Coty Gonzalez PA-C) History of mammogram Severe obesity (BMI 35.0-39.9) with comorbidity Seasonal allergies Polycystic ovarian syndrome Migraine Fatty liver Depression Chronic low back pain Anxiety disorder Abdominal pain, bilateral lower quadrant Surgical History (Updated 10/13/25 @ 14:15 by Coty Gonzalez PA-C) S/P laparoscopy with lysis of adhesions H/O section Family History Mother Anxiety Depression Father Alcoholic Paternal Grandmother Alcoholic Paternal Grandfather Alcoholic Maternal Grandmother Alcoholic Maternal Grandfather Alcoholic Other Substance use Social History (Updated 09/23/24 @ 15:42 by Kera Cancino CMA) Housing: House Alcohol intake: former Patient Tobacco Use Status: Former Tobacco user Cigarettes Per Day: 6 Years Smoked: 7 e-Cigarette/Vaping Use: Currently Using service: No Current occupational status: employed 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 Current occupational exposures/hazards: Yes (ink, heavy machinery, chemicals) Cognitive needs: No Hearing needs: No Vision needs: No Questionnaire Thrive Questionnaire Date Thrive assessed: 12/30/24 I am a: Patient What is your living situation today?: I have a steady place to live Within the past 12 months, did the food you bought not last and you didn't have the money to get more?: Never true Within the past 12 months, did you worry whether your food would run out before you got money to buy more?: Never true Do you have trouble paying for medicines?: No Do you have trouble getting transportation to medical appointments?: No Do you have trouble paying your heating and electricity bill?: No Do you have trouble taking care of your child, family member or friend?: No Do you have trouble with day-to-day activities such as bathing, preparing meals, shopping, managing finances, etc.?: No Are you currently unemployed and looking for a job?: No Are you interested in more education?: No Please select the resources that you would like help with: None Currently or been in a relationship where the following occur: No concerns reported THRIVE Score: 0 AUDIT C Alcohol Use Questionnaire (AUDIT-C) 1. How often do you have a drink containing alcohol?: Monthly or less 2. How many drinks containing alcohol do you have on a typical day when you are drinking?: 1 or 2 3. How often do you have six or more drinks on one occasion?: Never Total Score: 1 Physical exam (Primary Care) Vital Signs: Last Vital Signs Temp 98 F 10/13/25 13:52 Pulse 98 10/13/25 13:52 Resp 14 10/13/25 13:52 BP 126/84 10/13/25 13:52 Pulse Ox 98 10/13/25 13:52 Oxygen Delivery Method Room Air 10/13/25 13:52 BMI result Body Mass Index 39.7 Tobacco/Smoking Status: Tobacco use Status Tobacco use date assessed 10/13/25 10/13/25 13:55 Patient Tobacco Use Status Former Tobacco user 10/13/25 13:55 e-Cigarette/Vaping Use Currently Using 10/13/25 13:55 Thrive Assessment: Date of Thrive Assessment Date Thrive assessed 12/30/24 10/13/25 13:55 Currently or been in a relationship where the following occur: No concerns reported Const Orientation/consciousness: patient oriented x3 HENMT Ears: hearing grossly normal bilaterally Neck Thyroid: Thyroid normal Lymphatic: no lymphadenopathy noted Resp Auscultation: clear to auscultation bilaterally Cardio Rate: regular rate Rhythm: regular rhythm Heart sounds: S1 normal heart sound present and S2 normal heart sound present GI Inspection: Yes normal to inspection Palpation (GI): Soft to palpation, Tenderness to palpation present (GI) in the LLQ, in the RLQ, periumbilically and suprapubicly, no guarding and No Rebound tenderness present Auscultation: normoactive bowel sounds Rectal Exam - Female: deferred Skin General skin exam: no rashes or lesions noted Neuro General: patient oriented x3, gait normal and no focal motor deficits Coding Level of Care Code Est Pt Level 4 (78286) Add On Problem Visit Only Diagnoses Lower abdominal pain R10.30 Change in consistency of stool R19.5 S/P total hysterectomy Z90.710 Lower abdominal adhesions K66.0 Assessment & Plan Assessment & Plan (1) Lower abdominal pain: Code(s): R10.30 - Lower abdominal pain, unspecified Category: Medical Plan: ct abdomen and pelvis ordered labs ordered Abdominal exam today does not appear to be acute. We did discuss warning signs of abdominal pain that would require emergent medical treatment. I have referred her to GI and General surgery. (2) Change in consistency of stool: Code(s): R19.5 - Other fecal abnormalities Category: Medical Plan: As above (3) S/P total hysterectomy: Code(s): Z90.710 - Acquired absence of both cervix and uterus Category: Surgical Plan: As above (4) Lower abdominal adhesions: Code(s): K66.0 - Peritoneal adhesions (postprocedural) (postinfection) Category: Medical Plan: As above Orders: Orders CT abdomen pelvis wo IV con 10/13/25 R10.30 - Lower abdominal pain, unspecified Referrals Gastroenterology Referral K76.0 - Fatty (change of) liver, not elsewhere classified, R10.30 - Lower abdominal pain, unspecified, R19.5 - Other fecal abnormalities General Surgery Referral K66.0 - Peritoneal adhesions (postprocedural) (postinfection), R10.30 - Lower abdominal pain, unspecified, Z90.710 - Acquired absence of both cervix and uterus
[2025-10-13 13:52] VITALS: BP 126/84; PULSE 98; RESP 14; TEMP 36.6; O2SAT 98; BMI 39.7
== END 2025-10-13 14:23 | disposition home or self-care (01) ==
LOC: HO.HMCFM 13:42
PROVIDERS: PCP Physician Assistant; Visit Provider Physician Assistant
DX: R10.30 Lower abdominal pain, unspecified (principal); R19.5 Other fecal abnormalities; Z90.710 Acquired absence of both cervix and uterus; K66.0 Peritoneal adhesions (postprocedural) (postinfection)

== ENCOUNTER 2025-10-13 13:41 | Outpatient (REF) | payer OTHER, SELFPAY ==
[2025-10-13 18:28] LABS: MANUAL DIFF FLAG NO
[2025-10-13 18:47] LABS: Hematocrit 44.2 % (37.0-47.0); Hemoglobin 15.0 g/dl (12.0-16.0); Imm Gran Abs Auto 0.03 X10*3/uL (0.00-0.03); Imm Gran Pct Auto 0.3 % (0.0-0.4); Lymphocytes Absolute Auto 2.3 X10*3/uL (1.2-4.9); Mean Corpuscular HGB Conc 33.9 g/dl (31.0-35.0); Mean Corpuscular Hemoglobin 26.9 pg (27.0-33.0); Mean Corpuscular Volume 79.4 fL (80.0-98.0); NRBC Abs Auto 0.000 X10*3/uL (0.0-0.012); NRBC Pct Auto 0.0 /100WBC (0.0-0.2); Platelet Count 296 X10*3/uL (160-400); Red Blood Count 5.57 X10*6/uL (4.20-5.50); White Blood Count 11.7 X10*3/uL (4.8-10.8)
[2025-10-13 19:04] LABS: Alanine Aminotransferase 26 U/L (0-31); Albumin Level 4.6 g/dL (3.5-5.0); Alkaline Phosphatase 73 U/L (39-117); Anion Gap 11 (12-20); Aspartate Amino Transferase 24 U/L (5-31); Blood Urea Nitrogen 12 mg/dL (9-16); Calcium 9.3 mg/dL (8.4-10.2); Carbon Dioxide 27 mmol/L (22-29); Chloride 106 mmol/L (96-108); Cholesterol 207 mg/dL (<200); Estimated Glomerular Filt Rate > 60; HDL Cholesterol 73 mg/dL (>40); Potassium 4.1 mmol/L (3.3-5.1); Sodium 140 mmol/L (135-145); Total Protein 7.4 g/dL (6.5-8.0); Triglycerides 87 mg/dL (<150)
== END 2025-10-13 13:42 | disposition home or self-care (01) ==
LOC: HO.WFDLDS 13:41
PROVIDERS: PCP Physician Assistant; Visit Provider Physician Assistant
DX: E66.01 Morbid (severe) obesity due to excess calories (principal); R73.01 Impaired fasting glucose; E88.819 Insulin resistance, unspecified; R10.30 Lower abdominal pain, unspecified; R19.5 Other fecal abnormalities; K66.0 Peritoneal adhesions (postprocedural) (postinfection); Z79.890 Hormone replacement therapy; Z90.710 Acquired absence of both cervix and uterus; Z68.39 Body mass index [BMI] 39.0-39.9, adult
CPT/HCPCS: 36415; 80053; 80061; 83036; 84443; 85025